=== PATIENT | female | born 1975 | race Caucasian/White ===

== ENCOUNTER 2018-03-31 20:03 | Emergency (ER) | payer BC ==
[~2018-03-31] VITALS: Ht 154.9 cm; Wt 72.6 kg
[~2018-03-31 20:03] MED LIST: CIPRO500 MG PO; NORCO 5-325 TA1 EACH PO; PYRIDIUM200 MG PO
[2018-03-31] MEDS ORDERED: AZO STANDARD95 MG PO (21:38)
[2018-03-31] MEDS ORDERED: PYRIDIUM200 MG PO (22:56)
[2018-03-31] MEDS ORDERED: MACROBID 100 M100 MG PO (22:56)
== END 2018-03-31 23:12 | disposition home or self-care (01) ==
LOC: ED 20:03
DX: N39.0 Urinary tract infection, site not specified (principal)
CPT/HCPCS: 81001; 99283